=== PATIENT | female | born 1975 | race African-American/Black ===

== ENCOUNTER 2018-04-14 14:10 | Emergency (ER) | payer SELFPAY ==
[~2018-04-14] VITALS: Ht 175.3 cm; Wt 86.2 kg
[2018-04-14 14:10] VITALS: BP 117/74
[2018-04-14] MEDS ORDERED: ACETAMINOPHEN ES 500 MG TABLET ONE (16:26)
[2018-04-14] MEDS ORDERED: ACETAMINOPHEN ES 500 MG TABLET PO ONE (16:30)
== END 2018-04-14 16:33 | disposition home or self-care (01) ==
LOC: ER 14:14
DX: R51 Headache (principal); L72.3 Sebaceous cyst; Z91.013 Allergy to seafood; Z60.2 Problems related to living alone
CPT/HCPCS: 99282; A4606; Z7610

== ENCOUNTER 2018-04-18 12:20 | Emergency (ER) | payer SELFPAY ==
[~2018-04-18] VITALS: Ht 175.3 cm; Wt 86.2 kg
[2018-04-18 12:20] VITALS: BP 137/61
[2018-04-18 13:36] LABS: BASOPHILS % (AUTO) 0.6 % (0.0-2.0); EOSINOPHILS % (AUTO) 1.4 % (0.0-6.0); HEMATOCRIT 41 % (33-45); HEMOGLOBIN 13.4 g/dL (11.5-14.8); LYMPHOCYTES # (AUTO) 2.5 /CMM (0.8-4.8); MEAN CORPUSCULAR HEMOGLOBIN 28 PG (26.0-33.0); MEAN CORPUSCULAR HGB CONC 33 g/dl (31.0-36.0); MEAN CORPUSCULAR VOLUME 86 fL (82-100); MONOCYTES # (AUTO) 0.5 /CMM (0.1-1.30); MONOCYTES % (AUTO) 9.2 % (2.0-12.0); NEUTROPHILS # (AUTO) 2.2 /CMM (1.8-8.9); NEUTROPHILS % (AUTO) 40.8 % (43.0-81.0); PLATELET COUNT (AUTO) 388 /CMM (150-450); RDW COEFFICIENT OF VARIATION 13.8 (11.5-15.0); RED BLOOD CELL COUNT(AUTO) 4.77 MIL/uL (4.0-5.2); WHITE BLOOD COUNT (AUTO) 5.3 K/uL (4.3-11.0)
[2018-04-18 13:40] LABS: CALCIUM, SERUM 8.6 mg/dL (8.5-10.1); CREATININE 0.9 mg/dL (0.6-1.3); POTASSIUM 4.8 mmol/L (3.5-5.1)
== END 2018-04-18 14:07 | disposition home or self-care (01) ==
LOC: ER 12:22
DX: R51 Headache (principal); Z91.013 Allergy to seafood; Z60.2 Problems related to living alone
CPT/HCPCS: 36415; 70450; 80048; 84703; 85025; 99285; A4606; Z7610